=== PATIENT | female | born 1975 | race Caucasian/White ===

== ENCOUNTER 2020-08-09 20:12 | Inpatient (IN) | payer BC ==
[~2020-08-09] VITALS: Ht 165.1 cm; Wt 70.2 kg
[2020-08-09 19:10] VITALS: BP 114/54
[2020-08-09] MEDS ORDERED: ACETAMINOPHEN 500 MG TABLET PO PRN (20:45)
[2020-08-09] MEDS ORDERED: NALOXONE 0.4 MG/ML VIAL. IV PRN (20:45)
[2020-08-09] MEDS ORDERED: ONDANSETRON PF 4 MG/2 ML VIAL. IVP PRN (20:45)
[2020-08-09] MEDS: MORPHINE SULFATE 4 MG/ML VIAL. IV PRN (21:09)
--- NOTE | 2020-08-09 21:28 | RAD ---
EXAM: CHEST ONE VIEW. HISTORY: Chest tube placement. COMPARISON: Today's prior study. FINDINGS: A frontal view of the chest is obtained. A small bore right chest tube is in place. A moderate right pneumothorax is not clearly changed. There are no confluent infiltrates. Right paramediastinal atelectasis is likely present. There is no pneumothorax. The heart is not enlarged. IMPRESSION: 1. Stable moderate right pneumothorax. Electronically signed by: Xiomy Mosquera MD (08/09/2020 9:25 PM) [facility]
[2020-08-09 22:50] VITALS: BP 113/55
[2020-08-09] MEDS: oxyCODONE IR 5 MG TABLET PO PRN (22:55)
[2020-08-10] MEDS: oxyCODONE IR 5 MG TABLET PO PRN ×3 (00:42→09:15)
[2020-08-10] MEDS: MORPHINE SULFATE 4 MG/ML VIAL. IV PRN ×3 (01:38→10:35)
[2020-08-10 03:00] VITALS: BP 104/47
[2020-08-10 07:00] VITALS: BP 110/51
--- NOTE | 2020-08-10 08:08 | RAD ---
EXAM: CHEST ONE VIEW. HISTORY: Chest tube placement. COMPARISON: 08/09/2020. FINDINGS: A frontal view of the chest is obtained. A small right chest tube remains in place. A moderate right pneumothorax is unchanged. There are no confluent infiltrates. There is no pleural effusion. The heart is not enlarged. IMPRESSION: 1. Stable moderate right pneumothorax. Electronically signed by: Xiomy Mosquera MD (08/10/2020 8:05 AM) [id number]
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
--- NOTE | 2020-08-10 10:23 | PN ---
DATE: 08/10/2020 SUBJECTIVE: The patient was admitted as a transfer from [facility] Emergency Room after she was presented there with right-sided chest pain and shortness of breath. She was found to have a pneumothorax that apparently resulted from receiving steroid injection to her right shoulder. She has a chest tube placed and was transferred here for further evaluation and treatment. On questioning her, she continued to complain of pain in her right side of the chest, but no shortness of breath. OBJECTIVE: GENERAL: When I examined her, she looked well and was clearly in no apparent respiratory distress. No pallor, jaundice, cyanosis or thyromegaly. No jugular venous distention or limb edema. VITAL SIGNS: Her heart rate was 57, blood pressure was 104/47, temperature was 97.6, respiratory rate 20, and oxygen saturation was 99% on room air. HEENT: Examination of head, eyes, ears, nose and throat showed normocephalic, atraumatic. NECK: Supple. CARDIAC: Normal first and second heart sounds. No gallop, rub or murmur. CHEST: Shows central trachea, good air entry and chest expansion on the left side, decreased air entry, absent breath sounds on the right side. ABDOMEN: Distended, soft, nontender. NEUROLOGIC: She is grossly intact. IMAGING STUDIES: Her chest x-ray done this morning showed the patient had a small right chest tube that remains in place and moderate right pneumothorax, unchanged. There are no confluent infiltrates. There is no pleural effusion. The heart is not enlarged. The patient continued to be on continuous suction. ASSESSMENT: Traumatic pneumothorax. PLAN: To continue with chest tube to suction. Continue with pain management. I will order some lab work today as a baseline and hopefully once the lung has completely expanded, chest tube will be clamped and eventually will be removed. It is unlikely have been to today and hopefully she will be discharged home tomorrow if her pneumothorax has completely resolved. NICKI CAN MD DR: REUBEN/saida JOB#: [id number] / [id number]
--- NOTE | 2020-08-10 10:42 | HP ---
ADMIT DATE: 08/10/2020 HISTORY OF PRESENT ILLNESS: The patient is a 45-year-old female patient who presented to the Emergency Room of [facility] with chest pain on the right side and difficulty breathing after she had received 3 steroid injection in her right shoulder and scapular area by her doctor and the morning of admission, the patient denied any cough or fever. Denied any history of blood clots disorder. No history of coronary artery disease. She was evaluated and in fact has had a chest x-ray and lab work. Her chest x-ray showed that the patient has small to moderate right-sided pneumothorax. There are no confluent infiltrates. There is no pneumothorax. The heart is not enlarged. She has had a CT scan of the chest that showed moderate right sided pneumothorax. She has a 3.3 cm right supraclavicular mass, may represent a hematoma in the setting of recent instrumentation. Followup ultrasound could confirm resolution if diagnosis is unclear and a 5 mm right lower lobe nodule is most likely benign at the small size, requires no further followup in the absence of strong risk factors. Apparently, she has had a chest tube placed and her pneumothorax has become smaller. It was secured in place and the patient was transferred to [facility] to consult the shingle sawyer for monitoring of her chest tube. PAST MEDICAL HISTORY: Unremarkable. PAST SURGICAL HISTORY: Significant for breast reduction surgery. FAMILY HISTORY: Noncontributory. SOCIAL HISTORY: She is , does not smoke, has one son. Drinks alcohol occasionally. She continued to track worker. ALLERGIES: SHE IS ALLERGIC TO ASPIRIN AND RED DYE. MEDICATIONS: She is currently on orphenadrine citrate 100 mg twice a day and hydrocodone/APAP 5/325 at 1-1/2 to one tablet every 6 hours as needed. PHYSICAL EXAMINATION: GENERAL: On arrival to the Emergency Room, the patient looked well and was clearly in no apparent respiratory distress. No pallor, jaundice, cyanosis or thyromegaly. No jugular venous distention. No limb edema. VITAL SIGNS: Her heart rate was 82, blood pressure was 136/61, her temperature was 98, respiratory rate was 16, and oxygen saturation was 100% on room air. HEAD, EYES, EARS, NOSE AND THROAT: Showed normocephalic, atraumatic. NECK: Supple. HEART: Showed normal first and second heart sounds. No gallop, rub or murmur. CHEST: Shows central trachea, good air entry, chest expansion on the left side. Reduced chest air entry on the right side. ABDOMEN: Soft, nontender. No guarding or rigidity. No organomegaly. All hernial orifice intact. Bowel sounds normal. NEUROLOGIC: She is awake, alert, oriented x 3 with normal motor and sensory function. Her affect, judgment and mood were normal. LABORATORY DATA: Apparently, her initial chest x-ray showed that she has small to moderate right-sided pneumothorax that was confirmed by CT scan of the chest. She had a chest tube placed and a small bore chest tube is now suggestion laterally on the right side. The pneumothorax persist and apparently the chest tube was advanced and the pneumothorax on the right side has slightly decreased. ASSESSMENT AND PLAN: The patient has remained hemodynamically stable and therefore, she was transferred to [facility] to continue to intermittent suction and to consult the shingle sawyer. She was continued on IV morphine as well as Zofran. NICKI CAN MD DR: REUBEN/saida JOB#: [id number] / [id number]
[2020-08-10 10:52] LABS: HEMATOCRIT 39.1 % (36.0-47.0); HEMOGLOBIN 13.3 g/dL (12.0-15.5); RED BLOOD COUNT 4.28 x10^6/uL (3.50-5.40); RED CELL DISTRIBUTION WIDTH 14.3 % (11.5-14.5); WHITE BLOOD COUNT 5.8 x10^3/uL (4.0-11.0)
[2020-08-10 11:00] VITALS: BP 115/53
[2020-08-10 11:09] LABS: ALBUMIN 3.6 g/dL (3.4-5.0); ALBUMIN/GLOBULIN RATIO 1.1 (1.0-1.7); CALCIUM 9.2 mg/dL (8.5-10.1); CREATININE 0.7 mg/dL (0.6-1.0); GFR 90.9; POTASSIUM 3.7 mmol/L (3.5-5.1); TOTAL BILIRUBIN 0.3 mg/dL (0.2-1.0); TOTAL PROTEIN 6.9 g/dL (6.4-8.2)
[2020-08-10] MEDS: HYDROmorphone 2 MG/ML VIAL IVP PRN ×3 (13:25→21:53)
[2020-08-10 15:00] VITALS: BP 119/63
[2020-08-10 19:30] VITALS: BP 108/52
[2020-08-10 22:45] VITALS: BP 104/55
[2020-08-11] VITALS (11 sets, daily range): BP systolic 96–140; BP diastolic 44–62
[2020-08-11] MEDS: HYDROmorphone 2 MG/ML VIAL IVP PRN ×5 (02:52→22:33)
--- NOTE | 2020-08-11 08:28 | RAD ---
INDICATION: Reason: ptx RM#211 / Spl. Instructions: / History: COMPARISON: 1 day prior FINDINGS: Single view of chest obtained. Cardiac silhouette is similar to prior. There is a small bore right-sided chest tube. Right pneumothorax is again seen with the pleural age located approximately 32 mm from the costal margin. On prior was approximately 24 mm. Linear opacity left lung base could be secondary to atelectasis IMPRESSION: * Moderate right-sided pneumothorax is again seen and appears slightly increased in size when compared to prior exam. Report called to the patient's floor at 8:23 AM on date of exam Electronically signed by: Tam Anaya MD (08/11/2020 8:25 AM) [id number]
[2020-08-11 09:32] LABS: PROTHROMBIN TIME PATIENT 12.9 SEC (11.7-14.0)
--- NOTE | 2020-08-11 09:39 | PN ---
DATE: 08/11/2020 SUBJECTIVE: The patient is resting, slightly propped up in bed, in no apparent distress. She denied any shortness of breath; however, she continued to have pain in her right side of the chest. Her repeat chest x-ray apparently showed that she has moderate right sided pneumothorax again seen and appears slightly increased in size when compared to prior exam. She was seen by Dr. Zeng and apparently the plan is for her to have a bigger chest tube placed today by Dr. Sheth. PHYSICAL EXAMINATION: GENERAL: When I examined her, she looked well and was clearly in no apparent respiratory distress. No pallor, jaundice, cyanosis or thyromegaly. No jugular venous distention. No limb edema. VITAL SIGNS: Her heart rate was 60, blood pressure was 123/61, temperature was 97.7, respiratory rate was 20, and oxygen saturation was 100% on 4 liters of oxygen. HEAD, EYES, EARS, NOSE AND THROAT: Showed normocephalic, atraumatic. NECK: Supple. CARDIAC: Normal first and second heart sounds with no gallop, rub or murmur. CHEST: Shows central trachea, reduced chest expansion, reduced air entry and almost absent breath sounds on the right side. I could not appreciate any crepitation or rhonchi. ABDOMEN: Slightly distended, soft, nontender. NEUROLOGIC: She was grossly intact. ASSESSMENT: Traumatic pneumothorax. Unfortunately, the pneumothorax had actually increased in size with a plan to change the chest tube to a bigger size and Dr. Sheth has already been consulted. Meanwhile, we will continue with pain management. NICKI CAN MD DR: REUBEN/saida JOB#: [id number] / [id number]
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
[2020-08-11] MEDS ORDERED: LIDOCAINE WITH 8.4% SOD BICARB 3 ML DISP.SYRIN. ONE (10:45)
[2020-08-11] MEDS ORDERED: MIDAZOLAM HCL/PF 2 MG/2 ML VIAL. ONE (10:48)
[2020-08-11] MEDS ORDERED: fentaNYL PF VIAL 100 MCG/2 ML VIAL ONE (10:49)
[2020-08-11] MEDS ORDERED: LIDOCAINE WITH 8.4% SOD BICARB 3 ML DISP.SYRIN. IJ ONE (11:00)
[2020-08-11] MEDS ORDERED: fentaNYL PF VIAL 100 MCG/2 ML VIAL IV ONE (11:00)
[2020-08-11] MEDS ORDERED: MIDAZOLAM HCL/PF 2 MG/2 ML VIAL. IV ONE (11:00)
--- NOTE | 2020-08-11 11:55 | NUR ---
SS following for discharge planning. SS reviewed pt chart and discussed with pt RN. Pt is from home with spouse and is currently requiring oxygen. Pt has new chest tube. SS will continue to follow for discharge planning.
--- NOTE | 2020-08-11 16:37 | RAD ---
Procedure: CT-guided right thoracostomy tube placement Clinical Indication: Pneumothorax Sedation: Conscious sedation was administered for 20 minutes. The patient was monitored by a qualified independent observer throughout the time of sedation. Please refer to the medical record for exact doses of medications utilized to achieve moderate sedation. Sterility: The procedure was performed in its entirety using appropriate elements of sterile technique. Consent: The procedure was explained in its entirety to the patient or the patients designated medical detail representative by a member of the treatment team, including a discussion of the risks, benefits and commonly accepted alternatives to the procedure, as well as the expected consequences of no therapy whatsoever. Discussion of the risks included, but was not limited to, those that are most frequent and those that are rare but possibly severe or life-threatening, as well as the possibility of unforeseen complications. Technique and Findings: Following informed consent, the patient was prepped and draped in the usual sterile fashion. CT imaging redemonstrates large right pneumothorax. 1% lidocaine was administered for local anesthesia. Under intermittent CT guidance 5 Croatian Yueh needle was advanced into the pleural space. Air was aspirated. A guidewire was advanced into the pleural space over which, following dilatation a 8 Croatian pigtail drain was placed. The catheter was secured in place. No immediate complications were identified. Sterile dressings were applied. Impression: CT-guided right thoracostomy tube placement PQRS Compliance Statement: One or more of the following individualized dose reduction techniques were utilized for this examination: 1. Automated exposure control 2. Adjustment of the mA and/or kV according to patient size 3. Use of iterative reconstruction technique
[2020-08-11] MEDS: POLYETHYLENE GLYCOL 3350 17 GM PACKET. PO SCH (19:29)
--- NOTE | 2020-08-11 23:33 | RAD ---
CHEST AP ONLY History: Reason: Chest tube / Spl. Instructions: / History: Comparison: August 11, 2020. 5:52 AM. Findings: Interval repositioning of small caliber pigtail chest tube. Decreased right pneumothorax. No pleural effusion. No consolidation. Normal heart size. Postoperative over the right lung base. Impression: 1. Decreased right pneumothorax. Interval repositioning of small caliber chest tube. Electronically signed by: Dk Bryant DO (08/11/2020 11:30 PM) CRESENCIO
[2020-08-12 03:15] VITALS: BP 118/52
[2020-08-12] MEDS: HYDROmorphone 2 MG/ML VIAL IVP PRN ×7 (03:27→22:05)
[2020-08-12 07:00] VITALS: BP 115/55
--- NOTE | 2020-08-12 08:58 | PN ---
DATE: 08/12/2020 SUBJECTIVE: The patient is resting propped up in bed, in no apparent respiratory distress. She stated that she continues to have discomfort at the site of the chest tube, but otherwise is generally much improved. Denied any shortness of breath. OBJECTIVE: GENERAL: When I examined her, she looked well and was clearly in no apparent respiratory distress. No pallor, jaundice, cyanosis or thyromegaly. No jugular venous distention. No limb edema. VITAL SIGNS: Her heart rate was 73, blood pressure was 115/55, temperature was 97.7, respiratory rate was 18, and oxygen saturation was 100% on 4 liters of oxygen. HEAD, EYES, EARS, NOSE AND THROAT: Showed normocephalic, atraumatic. NECK: Supple. HEART: Normal first and second heart sounds. No gallop, rub or murmur. CHEST: Showed central trachea. Has a chest tube on the right side to intermittent suction. She has good bilateral chest expansion, air entry, vesicular sounds. I could not appreciate any crepitation or rhonchi. ABDOMEN: Distended, soft, nontender. NEUROLOGICAL: She was grossly intact. LABORATORY DATA: She has no lab work done this morning. However, her chest x-ray showed that her right lung has completely expanded. ASSESSMENT: Traumatic pneumothorax, status post placement of another chest tube with full expansion of her right lung. PLAN: Obviously to continue with pain management. Continue with Ativan for anxiety and ondansetron for nausea and vomiting. Her chest tube will probably be clamped; and if the lung still remains completely expanded, it would be hopefully discontinued and she can be discharged home tomorrow. NICKI CAN MD DR: REUBEN/saida JOB#: [id number] / [id number]
[2020-08-12 09:24] LABS: ALBUMIN 3.4 g/dL (3.4-5.0); ALBUMIN/GLOBULIN RATIO 0.9 (1.0-1.7); CALCIUM 8.8 mg/dL (8.5-10.1); CREATININE 0.6 mg/dL (0.6-1.0); GFR 108.6; POTASSIUM 3.6 mmol/L (3.5-5.1); TOTAL BILIRUBIN 0.3 mg/dL (0.2-1.0)
[2020-08-12] MEDS: POLYETHYLENE GLYCOL 3350 17 GM PACKET. PO SCH (09:26)
[2020-08-12 09:42] LABS: HEMOGLOBIN 13.1 g/dL (12.0-15.5); RED BLOOD COUNT 4.36 x10^6/uL (3.50-5.40); RED CELL DISTRIBUTION WIDTH 14.3 % (11.5-14.5)
[2020-08-12 10:33] VITALS: BP 119/59
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
--- NOTE | 2020-08-12 10:54 | RAD ---
Portable chest x-ray compared to similar exam dated 08/11/2020 for pneumothorax. FINDINGS: Pigtail chest tube on the right is unchanged. There is no discernible residual pneumothorax. No new lung parenchymal abnormalities. Heart size within normal limits. IMPRESSION: 1. No discernible residual pneumothorax. Electronically signed by: Nikhil Ghosh MD (08/12/2020 10:51 AM) [id number]
--- NOTE | 2020-08-12 13:05 | NUR ---
SS following up with discharge planning. SS reviewed pt chart and discussed with pt RN. Pt is currently requiring oxygen. Chest tube in place. SS will continue to follow for discharge planning.
[2020-08-12 14:53] VITALS: BP 111/56
[2020-08-12 19:42] VITALS: BP 126/61
[2020-08-12 22:44] VITALS: BP 120/60
[2020-08-13] MEDS: HYDROmorphone 2 MG/ML VIAL IVP PRN ×4 (01:41→11:07)
[2020-08-13 02:12] VITALS: BP 113/57
[2020-08-13 07:21] VITALS: BP 107/53
[2020-08-13] MEDS: POLYETHYLENE GLYCOL 3350 17 GM PACKET. PO SCH (08:22)
--- NOTE | 2020-08-13 10:07 | RAD ---
Single view of the chest. 08/13/2020 10:00 AM Indication: Reason: CHEST TUBE ,211 / Spl. Instructions: / History: Comparison: Chest radiograph, yesterday Findings: Right thoracostomy tube remains in stable position. No pneumothorax is identified. No pleural effusion is seen. Lungs are clear. Heart size is normal. Bony thorax is unchanged. IMPRESSION: Stable right thoracostomy tube. No pneumothorax. Electronically signed by: Arun Rosales MD (08/13/2020 10:04 AM) [id number]
[2020-08-13 10:32] VITALS: BP 121/58
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
--- NOTE | 2020-08-13 10:52 | NUR ---
SS following up with discharge planning. SS reviewed pt chart and discussed with pt RN. Pt is currently on room air. Chest tube clamped this morning. Pt having chest x-ray. Discharge plan is to home when medically ready. SS will continue to follow for discharge planning.
[2020-08-13] MEDS ORDERED: OXYC-325 PO (11:08)
--- NOTE | 2020-08-13 12:20 | NUR ---
Discharge Note: COURTNEY BUCIO [address] [place] [address] Discharge instructions and discharge home medications reviewed with Patient and a copy given. All questions have been answered and understanding verbalized. The following instructions and handouts were given: discharge instructions, pneumothorax info, prescription. Discontinued lines and drains: Peripheral IV intact. Patient discharged to Home or Self Care with Spouse via Ambulated at 1220.
== END 2020-08-13 12:20 | disposition home or self-care (01) | DRG 201 ==
LOC: 2 NORTH 20:12 → 2 SOUTH 08-11 12:43 → 2 NORTH 08-11 12:46
PROVIDERS: ADMIT Internal Medicine; ATTEND Internal Medicine
PROC: 0W9930Z Drainage of Right Pleural Cavity with Drainage Device, Percutaneous Approach (ICD-10-PCS; principal; 2020-08-11)
DX: S27.0XXA Traumatic pneumothorax, initial encounter (principal); J45.909 Unspecified asthma, uncomplicated; Z20.828 Contact with and (suspected) exposure to other viral communicable diseases; Z87.891 Personal history of nicotine dependence; F41.9 Anxiety disorder, unspecified; Z88.5 Allergy status to narcotic agent
CPT/HCPCS: 32557; 36415; 71045; 80053; 85027; 85610; 87426; 99152; 99153; A4215; C1729; C1892; C1894; J1170; J2250; J2270; J3010; J3490; U0003; G0378